=== PATIENT | female | born 1985 | race Caucasian/White ===

== ENCOUNTER 2020-01-07 04:58 | Emergency (ER) | payer MEDICAID ==
[~2020-01-07] VITALS: Ht 160 cm; Wt 54.0 kg
[~2020-01-07 04:58] MED LIST: DEPO SHOT; MOTRIN; TOPAMAX
[2020-01-07] MEDS ORDERED: ONDANSETRON HCL 4MG/2ML INJ IV STA (05:24)
[2020-01-07] MEDS ORDERED: MORPHINE SULFATE 4 MG/ML CPJ (NOT FOR IM USE) IV STA (05:24)
[2020-01-07] MEDS ORDERED: SODIUM CHLORIDE 0.9% 1,000 ML IV ONE (05:24)
[2020-01-07 05:54] LABS: BASOPHILS % 0.5 % (0.0-2.0); EOSINOPHILS % 0.8 % (0.0-5.0); HEMATOCRIT. 36.7 % (36.0-48.0); HEMOGLOBIN. 12.5 g/dL (12.0-16.0); LYMPHOCYTES % 36.9 % (20.0-50.0); MEAN CORPUSCULAR HEMOGLOBIN 32.1 pg (28.0-32.0); MEAN CORPUSCULAR VOLUME 93.8 fL (81.0-99.0); MONOCYTES % 6.1 % (2.0-8.0); NEUTROPHILS % 55.7 % (40.0-76.0); PLATELET 159 x1000/uL (130-400); RED BLOOD CELL COUNT 3.91 mill/uL (4.2-5.4); RED CELL DISTRIBUTION WIDTH 12.6 % (11.6-14.6)
[2020-01-07 05:55] LABS: CHLORIDE 109 mEq/L (98-107)
[2020-01-07] MEDS ORDERED: FENTANYL CITRATE/PF 50MCG/ML 2ML VIAL IV ONE (06:15)
[2020-01-07] MEDS ORDERED: FENTANYL CITRATE/PF 50MCG/ML 2ML VIAL ONE (07:02)
[2020-01-07] MEDS ORDERED: PROPOFOL 200MG/20ML VIAL IV ONE ×2 (07:13→07:15)
[2020-01-07 11:41] VITALS: BP 109/66
== END 2020-01-07 11:41 | disposition home or self-care (01) ==
LOC: ER 04:58
DX: G40.909 Epilepsy, unspecified, not intractable, without status epilepticus (principal); M25.511 Pain in right shoulder; R00.0 Tachycardia, unspecified
CPT/HCPCS: 23650; 36415; 73020; 73030; 80048; 85025; 93005; 96374; 96375; 99152; 99285; J2270; J2704; J3010; J7030; J2405

== ENCOUNTER 2020-01-09 05:06 | Inpatient (IN) | payer MEDICAID ==
[~2020-01-09] VITALS: Ht 160 cm; Wt 61.2 kg
[2020-01-09] MEDS ORDERED: LEVETIRACETAM 500MG PREMIX 100 ML IV ONE ×2 (05:45→07:00)
[2020-01-09 06:07] LABS: BASOPHILS % 0.6 % (0.0-2.0); EOSINOPHILS % 1.5 % (0.0-5.0); HEMATOCRIT. 35.7 % (36.0-48.0); HEMOGLOBIN. 12.1 g/dL (12.0-16.0); LYMPHOCYTES % 34.5 % (20.0-50.0); MEAN CORPUSCULAR HEMOGLOBIN 32.2 pg (28.0-32.0); MEAN CORPUSCULAR VOLUME 94.7 fL (81.0-99.0); MEAN PLATELET VOLUME 9.7 fl (7.4-10.4); MONOCYTES % 7.8 % (2.0-8.0); NEUTROPHILS % 55.6 % (40.0-76.0); PLATELET 155 x1000/uL (130-400); RED BLOOD CELL COUNT 3.77 mill/uL (4.2-5.4)
[2020-01-09 06:10] LABS: CHLORIDE 111 mEq/L (98-107)
[2020-01-09 06:35] LABS: CLARITY URINE CLOUDY (CLEAR); COLOR URINE YELLOW (YELLOW); KETONES URINE NEGATIVE (NEGATIVE); LEUKOCYTE ESTERASE URINE 1+ (NEGATIVE); NITRITE URINE NEGATIVE (NEGATIVE); OCCULT BLOOD URINE NEGATIVE (NEGATIVE); PH URINE 6.5 (4.5-8.0); PROTEIN URINE NEGATIVE (NEGATIVE); SPECIFIC GRAVITY URINE 1.025 (1.005-1.030)
[2020-01-09] MEDS ORDERED: SODIUM CHLORIDE 0.9% 1,000 ML IV ONE (07:00)
[2020-01-09 07:15] LABS: CHLORIDE 111 mEq/L (98-107)
[2020-01-09 07:19] LABS: ETHANOL BLOOD < 10 mg/dL
[2020-01-09 07:20] LABS: HCG SCREEN NEGATIVE; PROTHROMBIN TIME 10.7 sec (9.6-11.0)
[2020-01-09] MEDS ORDERED: CEFTRIAXONE 1 G PREMIX 50 ML IV ONE (08:30)
[2020-01-09 09:17] LABS: *AMPHETAMINES SCREEN URINE NEGATIVE (NEGATIVE); *BARBITURATES SCREEN URINE NEGATIVE (NEGATIVE); *COCAINE SCREEN URINE NEGATIVE (NEGATIVE); METHADONE URINE SCREEN NEGATIVE (NEGATIVE)
[2020-01-09 09:18] LABS: CANNABINOID URINE SCREEN NEGATIVE (NEGATIVE); PHENCYCLIDINE URINE SCREEN NEGATIVE (NEGATIVE)
[2020-01-09 10:11] LABS: *BENZODIAZEPINES SCREEN URINE PRESUMTIVE POSITIVE (NEGATIVE); OPIATES URINE SCREEN PRESUMTIVE POSITIVE (NEGATIVE)
[2020-01-09] MEDS ORDERED: ONDANSETRON HCL 4MG/2ML INJ IV PRN (11:00)
[2020-01-09] MEDS ORDERED: LORAZEPAM 2MG/ML CPJ IV PRN (11:00)
[2020-01-09 17:13] VITALS: BP 101/58
[2020-01-09 17:20] VITALS: BP 101/58
[2020-01-09 20:00] VITALS: BP 98/65
[2020-01-09] MEDS ORDERED: LEVETIRACETAM 500MG TABLET PO SCH (21:00)
[2020-01-09] MEDS: ACETAMINOPHEN 325MG TABLET PO PRN (21:01)
[2020-01-09 21:59] VITALS: BP 100/70
[2020-01-09 23:59] VITALS: BP 102/68
[2020-01-10] VITALS (11 sets, daily range): BP systolic 93–118; BP diastolic 56–88
[2020-01-10] MEDS ORDERED: PERA6TAB PO
[2020-01-10] MEDS ORDERED: LEVE10006 PO
[2020-01-10] MEDS ORDERED: CLOB20TA3 PO
[2020-01-10] MEDS: LEVETIRACETAM 500MG TABLET PO SCH ×2 (08:43→20:30)
[2020-01-10] MEDS: TOPIRAMATE 25MG TABLET PO SCH (20:30)
[2020-01-10] MEDS: ACETAMINOPHEN 325MG TABLET PO PRN (20:30)
[2020-01-11] VITALS (8 sets, daily range): BP systolic 92–108; BP diastolic 50–71
[2020-01-11] MEDS: TOPIRAMATE 25MG TABLET PO SCH (08:37)
[2020-01-11] MEDS: LEVETIRACETAM 500MG TABLET PO SCH (08:37)
[2020-01-13 13:10] LABS: TOPIRAMATE None Detected ug/mL (2.0-25.0)
== END 2020-01-11 12:01 | disposition home or self-care (01) | DRG 53 ==
LOC: ER 05:06 → 3WST 06:59 → EDBEDREQ 07:05 → EDBEDREQTM 07:05 → ENRESERV 15:19
PROVIDERS: ADMIT Internal Medicine; ATTEND Internal Medicine
DX: G40.909 Epilepsy, unspecified, not intractable, without status epilepticus (principal); E87.8 Other disorders of electrolyte and fluid balance, not elsewhere classified; K52.9 Noninfective gastroenteritis and colitis, unspecified; D25.9 Leiomyoma of uterus, unspecified; W18.39XA Other fall on same level, initial encounter; Y93.89 Activity, other specified; Y92.89 Other specified places as the place of occurrence of the external cause; Y99.8 Other external cause status; Z79.899 Other long term (current) drug therapy; R65.10 Systemic inflammatory response syndrome (SIRS) of non-infectious origin without acute organ dysfunction
CPT/HCPCS: 36415; 71045; 74176; 80053; 80201; 80305; 80320; 81003; 82542; 82962; 83605; 84703; 85025; 93005; 99285; J0696; J1953; J7030; G0480

== ENCOUNTER 2020-01-15 05:53 | Emergency (ER) | payer MEDICAID ==
[~2020-01-15] VITALS: Ht 162.6 cm; Wt 61.0 kg
[~2020-01-15 05:53] MED LIST changes: +CLOB20TA3 PO; +LEVE10006 PO; +PERA6TAB PO
[2020-01-15] MEDS ORDERED: MORPHINE SULFATE 4 MG/ML CPJ (NOT FOR IM USE) IV STA (06:41)
[2020-01-15] MEDS ORDERED: ONDANSETRON HCL 4MG/2ML INJ IV STA (06:41)
[2020-01-15] MEDS ORDERED: SODIUM CHLORIDE 0.9% 1,000 ML IV ONE (06:41)
[2020-01-15] MEDS ORDERED: PROPOFOL 200MG/20ML VIAL IV ONE (07:00)
[2020-01-15 11:35] VITALS: BP 109/72
== END 2020-01-15 11:46 | disposition home or self-care (01) ==
LOC: ER 05:53
DX: S43.014A Anterior dislocation of right humerus, initial encounter (principal); X58.XXXA Exposure to other specified factors, initial encounter; Y93.89 Activity, other specified; Y92.89 Other specified places as the place of occurrence of the external cause; G40.909 Epilepsy, unspecified, not intractable, without status epilepticus
CPT/HCPCS: 23650; 73030; 93005; 96374; 96375; 99152; 99285; J2270; J2405; J2704; J7030

== ENCOUNTER 2020-09-05 20:03 | Emergency (ER) | payer MEDICAID ==
[~2020-09-05] VITALS: Ht 162.6 cm; Wt 75.0 kg
[2020-09-05] MEDS ORDERED: LEVETIRACETAM 1000MG PREMIX 100 ML IV ONE (20:30)
[2020-09-05 21:21] LABS: BASOPHILS % 0.4 % (0.0-2.0); EOSINOPHILS % 2.3 % (0.0-5.0); HEMATOCRIT. 34.3 % (36.0-48.0); HEMOGLOBIN. 11.7 g/dL (12.0-16.0); LYMPHOCYTES % 35.6 % (20.0-50.0); MEAN CORPUSCULAR HEMOGLOBIN 31.6 pg (28.0-32.0); MEAN CORPUSCULAR VOLUME 92.8 fL (81.0-99.0); MEAN PLATELET VOLUME 8.9 fl (7.4-10.4); MONOCYTES % 7.8 % (2.0-8.0); NEUTROPHILS % 53.9 % (40.0-76.0); PLATELET 163 x1000/uL (130-400); RED CELL DISTRIBUTION WIDTH 13.2 % (11.6-14.6)
[2020-09-05 21:29] LABS: CHLORIDE 109 mEq/L (98-107)
[2020-09-05 21:30] LABS: HCG SCREEN NEGATIVE
[2020-09-05 21:31] LABS: ETHANOL BLOOD < 10 mg/dL
[2020-09-05 21:37] LABS: CREATINE KINASE 56 IU/L (26-192)
[2020-09-05 21:51] LABS: CLARITY URINE CLOUDY (CLEAR); COLOR URINE YELLOW (YELLOW); KETONES URINE NEGATIVE (NEGATIVE); LEUKOCYTE ESTERASE URINE NEGATIVE (NEGATIVE); NITRITE URINE NEGATIVE (NEGATIVE); OCCULT BLOOD URINE NEGATIVE (NEGATIVE); PH URINE 7.5 (4.5-8.0); PROTEIN URINE NEGATIVE (NEGATIVE); SPECIFIC GRAVITY URINE 1.026 (1.005-1.030); UROBILINOGEN URINE 0.2 E.U./dL (0.2-1.0)
[2020-09-05 22:07] LABS: *AMPHETAMINES SCREEN URINE NEGATIVE (NEGATIVE); *BARBITURATES SCREEN URINE NEGATIVE (NEGATIVE); *COCAINE SCREEN URINE NEGATIVE (NEGATIVE)
[2020-09-05 22:08] LABS: METHADONE URINE SCREEN NEGATIVE (NEGATIVE); OPIATES URINE SCREEN NEGATIVE (NEGATIVE); PHENCYCLIDINE URINE SCREEN NEGATIVE (NEGATIVE)
[2020-09-05 22:12] LABS: *BENZODIAZEPINES SCREEN URINE PRESUMTIVE POSITIVE (NEGATIVE); CANNABINOID URINE SCREEN PRESUMTIVE POSITIVE (NEGATIVE)
[2020-09-05] MEDS ORDERED: KEPP500 MT (23:40)
[2020-09-06 01:09] VITALS: BP 101/67
== END 2020-09-06 01:27 | disposition home or self-care (01) ==
LOC: ER 20:03
DX: G40.909 Epilepsy, unspecified, not intractable, without status epilepticus (principal)
CPT/HCPCS: 36415; 80053; 80305; 80320; 81003; 82140; 82550; 84703; 85025; 93005; 96365; 96366; 99284; J1953; Z7610; G0480

== ENCOUNTER 2020-11-15 03:01 | Emergency (ER) | payer MEDICAID ==
[~2020-11-15] VITALS: Ht 160 cm; Wt 59.0 kg
[~2020-11-15 03:01] MED LIST changes: +KEPP500 MT
[2020-11-15] MEDS ORDERED: ONDANSETRON HCL 4MG/2ML INJ IV ONE (04:15)
[2020-11-15] MEDS ORDERED: MORPHINE SULFATE 4 MG/ML CPJ (NOT FOR IM USE) IV ONE (04:15)
[2020-11-15 04:34] LABS: BASOPHILS % 0.5 % (0.0-2.0); EOSINOPHILS % 1.8 % (0.0-5.0); HEMATOCRIT. 34.6 % (36.0-48.0); HEMOGLOBIN. 11.5 g/dL (12.0-16.0); LYMPHOCYTES % 39.8 % (20.0-50.0); MEAN CORPUSCULAR HEMOGLOBIN 31.1 pg (28.0-32.0); MEAN CORPUSCULAR VOLUME 93.6 fL (81.0-99.0); MEAN PLATELET VOLUME 9.8 fl (7.4-10.4); MONOCYTES % 7.1 % (2.0-8.0); NEUTROPHILS % 50.8 % (40.0-76.0); PLATELET 171 x1000/uL (130-400); RED CELL DISTRIBUTION WIDTH 13.3 % (11.6-14.6)
[2020-11-15 04:37] LABS: CHLORIDE 108 mEq/L (98-107)
[2020-11-15 04:39] LABS: HCG SCREEN NEGATIVE
[2020-11-15 05:33] LABS: CLARITY URINE TURBID (CLEAR); COLOR URINE YELLOW (YELLOW); KETONES URINE NEGATIVE (NEGATIVE); LEUKOCYTE ESTERASE URINE 1+ (NEGATIVE); NITRITE URINE NEGATIVE (NEGATIVE); OCCULT BLOOD URINE NEGATIVE (NEGATIVE); PROTEIN URINE NEGATIVE (NEGATIVE); SPECIFIC GRAVITY URINE 1.026 (1.005-1.030)
[2020-11-15] MEDS ORDERED: IBUP-2029 MT (05:57)
[2020-11-15 06:10] VITALS: BP 97/65
== END 2020-11-15 06:15 | disposition home or self-care (01) ==
LOC: ER 03:01
DX: D25.9 Leiomyoma of uterus, unspecified (principal)
CPT/HCPCS: 36415; 76830; 76856; 80048; 81003; 81025; 84703; 85025; 96374; 96375; 99284; J2270; J2405

== ENCOUNTER 2020-11-26 00:56 | Emergency (ER) | payer MEDICAID ==
[~2020-11-26] VITALS: Ht 160 cm; Wt 58.0 kg
[~2020-11-26 00:56] MED LIST changes: +IBUP-2029 MT
[2020-11-26] MEDS ORDERED: CEPH500C2 MT (02:06)
[2020-11-26] MEDS ORDERED: IBUP-2028 MT (02:06)
[2020-11-26] MEDS ORDERED: IBUPROFEN 600MG TABLET PO ONE (02:15)
[2020-11-26] MEDS ORDERED: KETOROLAC 30MG/ML VIAL IM ONE (02:15)
[2020-11-26 02:18] VITALS: BP 110/77
== END 2020-11-26 02:41 | disposition home or self-care (01) ==
LOC: ER 00:56
DX: N64.52 Nipple discharge (principal); G40.909 Epilepsy, unspecified, not intractable, without status epilepticus; N64.4 Mastodynia; F41.9 Anxiety disorder, unspecified; Z98.890 Other specified postprocedural states; Z79.899 Other long term (current) drug therapy
CPT/HCPCS: 99283

== ENCOUNTER 2021-01-13 05:11 | Emergency (ER) | payer MEDICAID ==
[~2021-01-13] VITALS: Ht 160 cm; Wt 62.0 kg
[~2021-01-13 05:11] MED LIST changes: +CEPH500C2 MT; +IBUP-2028 MT
[2021-01-13 05:35] VITALS: BP 125/74
== END 2021-01-13 09:43 | disposition left against medical advice (07) ==
LOC: ER 05:11
DX: Z53.21 Procedure and treatment not carried out due to patient leaving prior to being seen by health care provider (principal)

== ENCOUNTER 2021-04-01 02:08 | Emergency (ER) | payer MEDICARE, MEDICAID ==
[~2021-04-01] VITALS: Ht 160 cm; Wt 58.0 kg
[2021-04-01 02:14] VITALS: BP 120/69
[2021-04-01] MEDS ORDERED: BACITRACIN ZINC OINT UDPKT TOP ONE (03:00)
[2021-04-01] MEDS ORDERED: LIDOCAINE HCL/PF 1% 10 MG/ML 5ML VIAL INFIL ONE (03:00)
[2021-04-01] MEDS ORDERED: BO1 TP (03:07)
== END 2021-04-01 03:40 | disposition home or self-care (01) ==
LOC: ER 02:08
DX: R56.9 Unspecified convulsions (principal); F41.9 Anxiety disorder, unspecified; Z79.899 Other long term (current) drug therapy
CPT/HCPCS: 11730; 99283; J3490

== ENCOUNTER 2021-04-06 23:12 | Emergency (ER) | payer MEDICARE, MEDICAID ==
[~2021-04-06] VITALS: Ht 160 cm; Wt 61.0 kg
[~2021-04-06 23:12] MED LIST changes: +BO1 TP
[2021-04-06 23:43] VITALS: BP 112/71
[2021-04-07] MEDS ORDERED: LIDOCAINE HCL/PF 1% 10 MG/ML 5ML VIAL INFIL ONE (01:30)
[2021-04-07] MEDS ORDERED: BACITRACIN ZINC OINT UDPKT TOP ONE (01:30)
[2021-04-07] MEDS ORDERED: IBUP-2030 MT (03:31)
== END 2021-04-07 03:40 | disposition home or self-care (01) ==
LOC: ER 23:12
DX: S61.303A Unspecified open wound of left middle finger with damage to nail, initial encounter (principal); X58.XXXA Exposure to other specified factors, initial encounter; Y93.89 Activity, other specified; Y92.89 Other specified places as the place of occurrence of the external cause; G40.909 Epilepsy, unspecified, not intractable, without status epilepticus
CPT/HCPCS: 11730; 99284; J3490

== ENCOUNTER 2021-04-08 16:20 | Emergency (ER) | payer MEDICARE, MEDICAID ==
[~2021-04-08] VITALS: Ht 162.6 cm; Wt 59.0 kg
[~2021-04-08 16:20] MED LIST changes: -IBUP-2028 MT; -IBUP-2029 MT; +IBUP-2030 MT
[2021-04-08 16:40] VITALS: BP 103/60
[2021-04-08] MEDS ORDERED: LIDOCAINE HCL/PF 1% 10 MG/ML 5ML VIAL INFIL ONE (19:15)
== END 2021-04-08 19:48 | disposition home or self-care (01) ==
LOC: ER 16:20
DX: R52 Pain, unspecified (principal); F41.9 Anxiety disorder, unspecified; Z98.890 Other specified postprocedural states; Z79.899 Other long term (current) drug therapy
CPT/HCPCS: 99281; J3490